=== PATIENT | male | born 1995 | race Caucasian/White ===

== ENCOUNTER 2016-03-17 01:40 | Emergency (ER) | payer BC ==
[~2016-03-17] VITALS: Ht 172.7 cm; Wt 67.3 kg
[2016-03-17 01:40] VITALS: BP 107/76; PULSE 100; TEMP 96.4
[~2016-03-17 01:40] MED LIST: UNABLE
== END 2016-03-17 03:01 | disposition home or self-care (01) ==
LOC: COL.ER 01:40
DX: S06.9X1A Unspecified intracranial injury with loss of consciousness of 30 minutes or less, initial encounter (principal); S00.03XA Contusion of scalp, initial encounter; S00.01XA Abrasion of scalp, initial encounter; W10.1XXA Fall (on)(from) sidewalk curb, initial encounter; Y92.480 Sidewalk as the place of occurrence of the external cause; F10.120 Alcohol abuse with intoxication, uncomplicated; Y90.9 Presence of alcohol in blood, level not specified; R40.2362 Coma scale, best motor response, obeys commands, at arrival to emergency department; R40.2142 Coma scale, eyes open, spontaneous, at arrival to emergency department; R40.2242 Coma scale, best verbal response, confused conversation, at arrival to emergency department